=== PATIENT | male | born 1965 | race Asian ===

== ENCOUNTER 2019-03-16 06:41 | Day surgery (SDC) | payer OTHER ==
[2019-03-14 10:04] VITALS: BMI 31.8
--- NOTE | 2019-03-15 17:41 | HP ---
HISTORY OF PRESENT ILLNESS: Mr. Werner Bonlila is a 53-year-old male, comes for a colonoscopy for colon cancer screening. The patient has no specific GI symptoms. His bowel movements are regular. No history of rectal bleeding. There is no family history of colon cancer. ALLERGIES: NONE. MEDICAL ILLNESSES: 1. Diabetes mellitus. 2. Hypertension. 3. Hyperlipidemia. 4. Kidney stone. 5. Obesity. SOCIAL HISTORY: The patient does not smoke or drink alcohol. PHYSICAL EXAMINATION: VITAL SIGNS: Pulse is 70, blood pressure 130/80. HEENT: Conjunctivae are clear. CARDIOVASCULAR: First and second heart sounds heard. LUNGS: Clear to auscultation. ABDOMEN: Soft. No organomegaly. No tenderness. No masses. EXTREMITIES: Reveal no edema. ADMITTING DIAGNOSIS: A 53-year-old [place] male, comes in for colonoscopy for colon cancer screening. Job ID: [id number]
--- NOTE | 2019-03-16 10:45 | OP ---
DATE OF PROCEDURE: 03/16/2019 OPERATIVE PROCEDURE: Colonoscopy. PREOPERATIVE DIAGNOSIS: Colon cancer screening. POSTOPERATIVE DIAGNOSIS: Normal colonoscopy except for hemorrhoids. The patient did have some liquid residue, which is washed up. DESCRIPTION OF PROCEDURE: The patient was placed on his left lateral position and was given sedation by Anesthesia Department. A rectal exam was done before the scope was advanced into the rectum. No lesions felt on rectal exam. A [employer]ax video colonoscope was introduced into the rectum and advanced all the way to cecum. The prep is good except for some dark green liquid residue throughout the colon. Water was irrigated and washed out. The mucosa appears normal throughout the colon with normal vascular pattern. In the appendiceal orifice, ileocecal wall, and cecum, no pathology seen. Withdrawal of scope from the cecum to ascending colon, hepatic flexure, no pathology seen. The transverse colon, splenic flexure, descending colon, sigmoid colon, no pathology seen. Retroflexion of scope in the rectum showed hemorrhoids. DISCHARGE PLAN: A 54-year-old [place] male, came for a colonoscopy for colon cancer screening. The colonoscopy showed no pathology. DISCHARGE RECOMMENDATIONS: 1. The patient advised to call me if he develops abdominal pain, hematochezia. 2. In the absence of any of the above symptoms, he will come back to me in 2 weeks. Job ID: [id number]
[2019-03-16] MEDS ORDERED: PROPOFOL 200 MG/20 ML VIAL ONE (14:54)
== END 2019-03-16 10:40 | disposition home or self-care (01) ==
LOC: SDC 06:41
PROVIDERS: ATTEND Internal Medicine Gastroenterology
PROC: 0DJD8ZZ Inspection of Lower Intestinal Tract, Via Natural or Artificial Opening Endoscopic (ICD-10-PCS; principal; 2019-03-16)
DX: Z12.11 Encounter for screening for malignant neoplasm of colon (principal); K64.9 Unspecified hemorrhoids; E11.9 Type 2 diabetes mellitus without complications; I10 Essential (primary) hypertension; E78.5 Hyperlipidemia, unspecified; E66.9 Obesity, unspecified; Z68.31 Body mass index [BMI] 31.0-31.9, adult; Z79.82 Long term (current) use of aspirin; Z79.84 Long term (current) use of oral hypoglycemic drugs; Z79.899 Other long term (current) drug therapy

== ENCOUNTER 2020-01-30 08:10 | Outpatient (CLI) | payer OTHER ==
--- NOTE | 2020-01-30 10:37 | MRI ---
MRI RIGHT WRIST WITH AND WITHOUT CONTRAST: HISTORY: Ganglion cyst. Wrist pain. COMPARISON: Wrist radiographs 01/24/2020. FINDINGS: Exam is limited due to extensive motion artifact. Corresponding to the region of entrance marker radha ng the lateral aspect of the wrist near the radial styloid is a multiloculated ganglion cyst measurin g 12 mm in AP dimension by a transverse width of 9 mm in a craniocaudal dimension of 15 mm. This conchita ginates at the volar aspect of the wrist near the origin of the radial scaphocapitate ligament. In t he dorsal aspect of the wrist is another ganglion pseudocyst between the 3rd and 4th extensor compar tments measuring 6 mm in transverse x 5 mm AP dimension with a craniocaudal length of 1 cm. This is through the dorsal intercarpal ligament. A small amount of fluid within the prestyloid recess. There is no acute fracture or malalignment. Triangular fibrocartilage appears to be intact. No sign ificant tenosynovitis. IMPRESSION: 1. Volar ganglion pseudocyst as described as the region of interest marker. 2. Smaller non-loculated simple ganglion pseudocyst of the dorsal aspect of the wrist between the 3r d and 4th extensor compartments just distal to the radiocarpal joint. POS: HOME
== END 2020-01-30 08:11 | disposition home or self-care (01) ==
LOC: SCSMRI 08:10
PROVIDERS: ATTEND Orthopaedic Surgery Hand Surgery
DX: M67.431 Ganglion, right wrist (principal)